=== PATIENT | female | born 1980 | race Caucasian/White ===

== ENCOUNTER 2016-10-30 07:25 | Emergency (ER) | payer OTHER ==
--- NOTE | 2016-10-30 08:45 | RAD ---
Indication: Left leg pain and swelling. 2 views of the lower leg demonstrates no fracture. No other bone or joint abnormality is noted. IMPRESSION: No fracture of the left lower leg is noted.
--- NOTE | 2016-10-30 08:46 | RAD ---
Indication: LEFT knee pain 2 days post traumatic injury. Comparison: LEFT lower leg exam of the same date. Technique: LEFT knee: AP, tunnel, lateral, sunrise views. Report: Mild soft tissue swelling most prominent anteriorly. Negative for joint effusion, fracture, or malalignment. Preserved joint spaces. IMPRESSION: Mild predominant anterior soft tissue swelling without additional finding.
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
[2016-10-30 09:55] VITALS: BP 102/72
== END 2016-10-30 09:37 | disposition home or self-care (01) ==
LOC: UCEAST 07:25
DX: S89.92XA Unspecified injury of left lower leg, initial encounter (principal); V29.88XA Motorcycle rider (driver) (passenger) injured in other specified transport accidents, initial encounter
CPT/HCPCS: 84702; 99213; G0463